=== PATIENT | male | born 1950 | race African-American/Black ===

== ENCOUNTER 2019-02-08 15:03 | Inpatient (IN) | payer MEDICARE, OTHER ==
[~2019-02-08] VITALS: Ht 180.3 cm; Wt 89.2 kg
[2019-02-08] VITALS (10 sets, daily range): BP systolic 122–152; BP diastolic 79–98; Ht 180.3 cm; Wt 89.2 kg
--- NOTE | ~2019-02-08 | HP ---
PATIENT: KATE ARROYO MEDICAL RECORD: [id number] ACCOUNT: [id number] LOCATION:[facility] D.CV02 : 48 ADMISSION DATE: 02/08/19 PCP: SABI CURRY MD HISTORY AND PHYSICAL EXAMINATION DATE OF ADMISSION: 02/08/2019 REASON FOR ADMISSION: Symptomatic bradycardia. HISTORY: This is a 69-year-old male who presented to my office for followup. He saw Dr. Samano about a month ago with shortness of breath and congestion, put him on some antibiotics, and he is feeling a little better but still has dyspnea on exertion and overall fatigue. In my office, his heart rate was down in low 40s. He had a little chest pain, but nothing huge. EKG showed frequent PVCs and heart rate of 45. He is assigned to observation at [facility] for symptomatic bradycardia and hypertension. PAST MEDICAL AND SURGICAL HISTORY: Hypertension and arthritis. He has had history of prostate cancer, history of iron-deficient anemia, and has peripheral artery disease. PAST SURGICAL HISTORY: He has had stents and peripheral arteries in his legs. He has had appendectomy, lumbar surgery in [place] in 1999, and prostatectomy by Dr. Olivo on 11/27/2015. ALLERGIES: None. HOME MEDICATIONS: He takes hydrocodone 10/325 five times a day, amlodipine 10 mg once a day, losartan 100 mg once a day, hydrochlorothiazide 25 mg once a day, and clonidine 0.2 mg twice a day. He also takes metoprolol succinate 100 once a day and has for years. He is also taking pravastatin 40 mg once a day. HABITS: He is a former smoker. Denies alcohol or drugs. SOCIAL HISTORY: He is retired. He is . FAMILY HISTORY: Both parents are . REVIEW OF SYSTEMS: GENERAL: No major weight changes. HEENT: No particular sinus or allergy problems. RESPIRATORY: No known diagnosis of emphysema or asthma. CARDIAC: He has no history of coronary artery disease. He has peripheral artery disease and has had stents placed. GASTROINTESTINAL: He has occasional heartburn. GENITOURINARY: History of prostate cancer. He has been treated with surgery and has done well. MUSCULOSKELETAL: He has arthritis and chronic lower back pain, on hydrocodone. NEUROLOGIC: No migraines. No seizure activity. PSYCHIATRIC: Denies depression or melancholia. PHYSICAL EXAMINATION: VITAL SIGNS: Temperature 97.9, heart rate 48, respirations 16, blood pressure 138/81, and O2 sat is 97%. GENERAL: He appears tired. He walks slowly down the naranjo due to fatigue. HISTORY AND PHYSICAL [id number] KATE ARROYO: Grossly within normal limits. NECK: Supple. No JVD or bruit. HEART: Bradycardic without murmur. LUNGS: Few rales bilaterally. No wheezes. ABDOMEN: Soft. EXTREMITIES: No edema. LABORATORIES: CBC with white count of 4000, hemoglobin 15.2, hematocrit 42.8, and platelets 146,000. Basic metabolic panel is all normal. Liver functions are normal. Troponin less than 0.017. ProBNP 2012. TSH 0.9 and free T4 of 1.32. ASSESSMENT: 1. Symptomatic bradycardia. 2. Hypertension. PLAN: He is on multiple drugs just to try to get his blood pressure under decent control including beta-ino. We will admit to observation on telemetry and hold the beta-ino. We will consult cardiology. Other tests or procedures as warranted. TRANSINT:[id number] Voice Confirmation ID: [id number] DOCUMENT ID: [id number] SABI CURRY MD CC: [id number] DICTATION DATE: 02/09/19 1356 GEODESY TEACHER: 02/09/19 1533 DIS IN 02/09/19 [facility] [address] [id number]
--- NOTE | ~2019-02-08 | CN ---
PATIENT NAME:KATE ARROYO MEDICAL RECORD: [id number] : 46 LOCATION:[facility].CV02 ADMIT DATE: 02/08/19 ACCOUNT: [id number] CONSULTING PHYSICIAN: CRISTY DUNN MD REFERRING PHYSICIAN: SABI CURRY MD DATE OF CONSULTATION: 02/09/2019 DIAGNOSES: 1. Symptomatic bradycardia. 2. Shortness of breath, dyspnea on exertion. 3. Hypertension. 4. Abnormal ECG, bradycardia with PVCs. HISTORY OF PRESENT ILLNESS: This is a gentleman with no previous cardiac history, quite extensive history of hypertension, on multiple agents, who for the past 2 weeks has had shortness of breath, dyspnea on exertion and overall fatigue, found to have symptomatic bradycardia. He is on metoprolol 100 mg b.i.d. This metoprolol has been on hold overnight. His heart rate is better within the 60s. He is having frequent PVCs on telemetry at this time. PHYSICAL EXAMINATION: GENERAL APPEARANCE: Well-nourished, well-developed, appears stated age. Level of distress, comfortable. PSYCHIATRIC: Mental status, alert, normal affect. Orientation, oriented to time, place and person. EYES: Lids and conjunctiva, noninjected. No discharge, no pallor. ENT: Lips, teeth, gums, normal dentition. Oropharynx, no cyanosis, no pallor. NECK: Carotid arteries, bilateral normal upstroke, no bruits, no thrills. JUGULAR VEINS: No jugular venous pressure or distention. CERVICAL LYMPH NODES: Nontender, nonenlarged. THYROID: Not enlarged. Nontender. No nodules. LUNGS: Respiratory effort, unlabored. CHEST: Normal curvature. No thoracic deformity. No chest wall tenderness. Percussion, resonant. Auscultation, clear. No wheezes, no rales, no rhonchi. CARDIOVASCULAR: Precordial exam, nondisplaced. No heaves or pericardial thrills. Rate and rhythm, regular. Heart sounds, normal S1, normal S2. No S3, no gallop, no rub. Systolic murmur, not heard. Diastolic murmur, not heard. EXTREMITIES: No cyanosis, no edema. Peripheral pulses, full and equal in all extremities, except as noted. No bruits appreciated. ABDOMEN: Soft, nondistended. Normal aorta. No bruit. Nontender. No masses. Liver, nontender, no hepatomegaly. Spleen, nontender, no splenomegaly. MUSCULOSKELETAL: No joint tenderness. No joint swelling. No erythema. NEUROLOGICAL: Normal gait, normal strength, normal tone. SKIN: Warm and dry. OVERALL IMPRESSION: Symptomatic bradycardia, most likely secondary to the metoprolol; however, he is having frequent PVCs. We will get an echocardiogram to rule out structural cardiac abnormalities and cardiomyopathy as well get stress testing with Cardiolite imaging to rule out ischemic base for the PVCs. If his cardiac tests are normal and the bradycardia resolves without the metoprolol, would choose another agent such as an alpha ino in addition to his Norvasc and ARB for blood pressure control. TRANSINT:[id number] Voice Confirmation ID: [id number] DOCUMENT ID: [id number] CONSULT REPORT [id number] KATE ARROYO JEFFREY MD CC: [id number] DICTATION DATE: 02/09/19 08 MANAGER CARDIAC: 02/09/19 0842 ADM IN [facility] [address] [id number]
--- NOTE | ~2019-02-08 | ST ---
PATIENT:KATE ARROYO MEDICAL RECORD: [id number] SEX: M LOCATION:[facility] D.CV0 ORDER #: ADMISSION DATE: 02/08/19 AGE OF PATIENT: 69 REFERRING PHYSICIAN: INTERPRETING PHYSICIAN: CRISTY DUNN MD DATE OF SERVICE: 02/09/2019 PROCEDURE: Nuclear stress test. PROCEDURE: The patient was exercised on standard Frederick protocol with 33 mCi of sestamibi injected at peak stress, 11 mCi used previously for rest images. FINDINGS: Gated SPECT reveals a preserved ejection fraction of 50% with good wall motioning and thickening and brightening throughout all segments. SPECT imaging Cardiolite was used as myocardial perfusion agent. There is homogeneous uptake throughout all segments at rest and stress with no evidence of inducible ischemia or previous infarction. OVERALL IMPRESSION: 1. This is a normal nuclear stress test with no evidence of inducible ischemia or previous infarction. 2. Gated SPECT reveals preserved ejection fraction at 50% in this patient with ongoing symptomatology, the current scan does not suggest the presence of hemodynamically significant coronary artery disease. TRANSINT:[id number] Voice Confirmation ID: [id number] DOCUMENT ID: [id number] CRISTY DUNN MD CC: [id number] DICTATION DATE: 02/09/19 1346 BRAND AMBASSADOR PROMOTIONAL MODEL: 02/09/19 2332 DIS IN 02/09/19 [id number] [place] [address]
--- NOTE | ~2019-02-08 | EC ---
PATIENT:KATE ARROYO DATE OF SERVICE: 02/08/19 SEX: M MEDICAL RECORD: [id number] DATE OF : 46 LOCATION:[address] [address] AGE OF PATIENT: 69 ADMISSION DATE: 02/08/19 REFERRING PHYSICIAN: INTERPRETING PHYSICIAN: CRISTY BRAN MD ECHOCARDIOGRAM REPORT ECHO CHARGES 4 ECHO COMPLETE Date: 02/09/19 CLINICAL DIAGNOSIS: BRADYCARDIA ECHOCARDIOGRAPHIC MEASUREMENTS (adult normal given) AC root (d.<3.7cm) 3.1 cm LV Septum d (<1.2 cm> 1.3 cm Valve Excursion 2.0 cm LV Septum (systole) 2.1 cm Left Atria (s.<4.0cm> 3.6 cm LVPW d(<1.2cm) 1.3 cm RV (d.<2.3cm) 4.0 cm LVPW (sytole) 1.4 cm LV diastole(<5.6CM) 5.7 cm MV E-F(>70mm/sec) cm LV systole 3.2 cm LVOT Diameter 2.1 cm MV exc.(>10mm) cm Est.ejection fraction (50-75%) % DOPPLER: LVIT cm/sec A 75 cm/sec E 34 cm/sec LA cm/sec RVSP 22.9 mmHg LVOT 103 cm/sec AOP1/2T m/s Asc. Ao 109 cm/sec RVOT 57 cm/sec RA cm/sec PA 85 cm/sec AV Gradient Peak 4.7 mmHg AV Mean 2.6 mmHg AV Area 3.3 cm MV Gradient Peak 2.9 mmHg MV Mean 1.0 mmHg MV Area cm COMMENTS: Hearing Impaired Teacher: Yovani SUAREZGOLDY LORIN Filler Machine Operator: 1 Dr. Bran TAPE# PACS Pericardial Effusion N DATE OF SERVICE: 02/09/2019 FINDINGS: 1. Left ventricular chamber size is within normal limits. Left ventricular systolic function is normal. Overall ejection fraction is estimated at 60%. 2. Left atrium, right atrium, and right ventricular chamber sizes are within normal limit. 3. Valvular structures have normal structure and motion. 4. Doppler interrogation reveals mild mitral regurgitation and mild tricuspid regurgitation. No other valvular insufficiency or stenosis. Pulmonary systolic ECHOCARDIOGRAM REPORT [id number] KATE ARROYO pressure is estimated at 23 mmHg. 5. No evidence of pericardial effusion or left ventricular thrombus. TRANSINT:[id number] Voice Confirmation ID: [id number] DOCUMENT ID: [id number] CRISTY BRAN MD CC: [id number] DICTATION DATE: 02/09/19 1313 FOIL SPINNER: 02/09/19 1401 ADM IN [address] [place] [address]
[~2019-02-08 15:03] MED LIST: CALAN SR240 MG PO; CATAPRES0.2 MG PO; DIOVAN HCT 320/1 TA2 PO; HYDROCODONE-APA1 TAB PO; TOPROL XL50 MG PO
--- NOTE | 2019-02-08 15:33 | NUR ---
CALLED AND SPOKE WITH DR CURRY TO VERIFY RESTARTING HOME MEDS EXCEPT HOLD METOPROLOL, NOTIFIED TAUNOE OF CONSULT WITH ORDERS FOR ECHO AND NS
[2019-02-08] MEDS ORDERED: COZAAR100 MG PO (15:44)
[2019-02-08] MEDS ORDERED: HYDROCHLOROTHIA25 MG PO (15:44)
[2019-02-08] MEDS ORDERED: NORVASC10 MG PO (15:44)
[2019-02-08] MEDS ORDERED: PRAVACHOL40 MG PO (15:45)
--- NOTE | 2019-02-08 16:00 | NUR ---
PT ARRIVED IN THE UNIT. PT A&O X4. PT HOOKED TO ICU MONITORS. SINUS BRADYCARDIA NOTED WITH A FIRST DEGREE BLOCK WITH OCCASIONAL PVC'S NOTED. PT ON RA. DENIES SOB. CRACKLES NOTED TO ALL LUNG LOBES. PT AMBULATED TO THE BATHROOM WITH A NORMAL STEADY GAIT AND VOIDED. IV STARTED IN THE PTS RIGHT WRIST PER SUNNI ARCEO. VSS AT THIS TIME. WILL CONT POC.
[2019-02-08 16:13] LABS: BASOPHILS 0.3 % (0-2); EOSINOPHILS 1.8 % (0-7); HEMATOCRIT 42.8 % (42.0-54.0); HEMOGLOBIN 15.2 g/dL (13.5-17.5); IMMATURE GRANULOCYTES 0.3 % (0-5); LYMPHOCYTES 25.3 % (15-50); MCHC 35.5 g/dL (31.0-37.0); MCV 81.5 fL (80.0-100.0); MEAN PLATELET VOLUME 10.3 fL (7.4-10.4); MONOCYTES 7.8 % (2-11); NEUTROPHILS 64.5 % (40-80); RBC 5.25 10x6/uL (4.20-6.10); RDW 13.2 % (11.5-14.5)
[2019-02-08 16:15] LABS: PLATELET COUNT 146 10x3/uL (130-400)
[2019-02-08 16:39] LABS: ALBUMIN 3.7 g/dL (3.4-5.0); ALKALINE PHOSPHATASE 74 U/L (46-116); ALT (SGPT) 10 U/L (10-68); BILIRUBIN - TOTAL 1.05 mg/dL (0.2-1.3); CALC OSMOLALITY 271 mosm/kg (275-300); CALCIUM 8.9 mg/dL (8.5-10.1); CARBON DIOXIDE 28.6 mmol/L (21.0-32.0); CHLORIDE - SERUM 102 mmol/L (98-107); CREATININE - SERUM 1.1 mg/dL (0.6-1.3); GLUCOSE 99 mg/dL (74-106); POTASSIUM - SERUM 3.5 mmol/L (3.5-5.1); PRO BNP 212 pg/mL (0-125); PROTEIN - SERUM 6.9 g/dL (6.4-8.2); SODIUM 136 mmol/L (136-145); T4 THYROXIN - FREE 1.32 ng/dL (0.76-1.46); UREA NITROGEN 12 mg/dL (7-18); eGFR NON AFRICAN AMERICAN 70 mL/min (90-120)
[2019-02-08 16:40] LABS: TROPONIN-I < 0.017 ng/mL (0.000-0.060)
--- NOTE | 2019-02-08 18:00 | NUR ---
PT SITTING OOB IN CHAIR EAT HIS DINNER. VSS. DENIES NEEDS AT THIS TIME WILL CONT POC.
--- NOTE | 2019-02-08 19:30 | NUR ---
PT UP IN CHAIR, AOX4. UNLABORED RESPIRATIONS, SPO2 97 ON ROOM AIR. DENIES PAIN AT THIS TIME. BRADYCARDIC ON MONITOR, BP 132/81. PERIPHERAL PULSES PRESENT. BOWEL SOUNDS ACTIVE IN ALL QUADRANTS. UP TO BATHROOM, STEADY GAIT. DENIES FURTHER NEEDS AT THIS TIME. CALL LIGHT WITHIN PT REACH. CPOC.
--- NOTE | 2019-02-08 20:43 | NUR ---
FRESH WATER PROVIDED. HS MED GIVEN, TOLERATED WELL. VSS, HR 55-60. DENIES ANY PAIN AT THIS TIME. PARTIAL LINEN CHANGE. REQUESTS TO LAY IN BED AT THIS TIME, STEADY GAIT. RESTING COMFORTABLY. DENIES FURTHER NEEDS. CALL LIGHT WITHIN PT REACH. CPOC.
--- NOTE | 2019-02-08 23:30 | NUR ---
REASSESSMENT COMPLETE, NO NEW CHANGES AT THIS TIME. PT REPOSITIONS SELF INDEPENDENTLY. DENIES PAIN AT THIS TIME. DENIES NEEDS. CALL LIGHT AND BEDSIDE TABLE WITHIN PT REACH. CPOC.
[2019-02-09] VITALS (14 sets, daily range): BP systolic 122–167; BP diastolic 63–103
--- NOTE | 2019-02-09 01:30 | NUR ---
PT RESTING QUIETLY WITH UNLABORED RESPIRATIONS, VSS. REPOSITIONED SELF INDEPENDENTLY. CALL LIGHT WITHIN PT REACH. CPOC.
--- NOTE | 2019-02-09 03:30 | NUR ---
REASSESSMENT COMPLETE, SEE FLOWSHEET. PT UP TO BATHROOM, STEADY GAIT. PARTIAL LINEN CHANGE COMPLETE. DENIES PAIN. DENIES FURTHER NEEDS. CALL LIGHT WITHIN PT REACH. CPOC.
--- NOTE | 2019-02-09 07:15 | NUR ---
SHIFT REPORT RECEIVED. AA&OX4. DENIES CHEST PAIN. ON ROOM AIR. 20G PIV NOTED ON R-WRIST WITH NS AT 150ML/HR. LOW HR NOTED. SHIFT ASSESSMENT COMPLETED AND CHARTED IN FLOWSHEET. NO FURTHER NEEDS AT THIS TIME. WILL CONTINUE TO MONITOR.
--- NOTE | 2019-02-09 07:59 | NUR ---
DR. DUNN AT BEDSIDE. PT CAN GO TO PCU PER DR. DUNN.
--- NOTE | 2019-02-09 08:39 | NUR ---
AM MEDS GIVEN. DEATH CLAIM CLERK IN ROOM AT THIS TIME.
--- NOTE | 2019-02-09 10:58 | NUR ---
PT NOT IN ROOM AT THIS TIME. WENT DOWN FOR STRESS TEST.
--- NOTE | 2019-02-09 11:58 | NUR ---
PT BACK IN ROOM. CONNECTED TO INCOME TAX EXPERT. SITTING UP IN CHAIR. WILL CONTINUE TO MONITOR.
--- NOTE | 2019-02-09 13:02 | NUR ---
PT NOT IN ROOM. TAKEN BACK DOWN TO IMAGAGING.
--- NOTE | 2019-02-09 13:30 | NUR ---
PT BACK IN ROOM. CONNECTED TO TRIAGE ASSISTANT. SITTING IN CHAIR. SON AT BEDSIDE.
[2019-02-09] MEDS ORDERED: CARDURA4 MG PO (14:01)
--- NOTE | 2019-02-09 15:12 | NUR ---
R WRIST PIV DC'D WITH CATHETER TIP INTACT. DISCHARGE INSTRUCTIONS REVIEWED WITH PATIENT. FOLLOW UP WITH DR. CURYR ON FEBRUARY 17, 2019 AT 1140. NO FOLLOW UP REQUIRED WITH DR. DUNN. WHEELED PT OUT TO PERSONAL VEHICLE. PERSONAL BELONGINGS SENT HOME WITH PATIENT INCLUDING CELL PHONE AND ORE DIGGER.
--- NOTE | 2019-02-11 20:23 | MORECARE ---
CASE MANAGEMENT DISCHARGE SUMMARY PATIENT: KATE ARROYO UNIT: [id number] ADM DATE: 02/08/19 AGE: 69 : 48 SEX: M [facility] AUTHOR: TISH LEWIS PHYSICIAN: REFERRING PHYSICIAN: SABI CURRY MD DATE OF SERVICE: 02/11/19 Discharge Plan Patient Name: KTAE ARROYO Facility: [facility]:[place] : 1950 Planned Disposition: Home Anticipated Discharge Date: Discharge Date: 02/09/2019 Expected LOS: Initial Reviewer: [id number] Initial Review Date: 02/09/2019 Generated: 02/11/19 9:23 pm Patient Name: KATE ARROYO Page 19204 at 2022 All edits/amendments must be made on the electronic document DICTATION DATE: 02/11/192022 NEON GLASS BENDER: RY 02/11/192022 RPT#: [id number] DC DATE:02/09/19 STATUS: DIS IN [facility] [address] [place] [address] END OF REPORT
--- NOTE | 2019-02-11 20:31 | MORECARE ---
CASE MANAGEMENT DISCHARGE SUMMARY PATIENT: KATE ARROYO UNIT: [id number] ADM DATE: 02/08/19 AGE: 69 : 48 SEX: M ROOM/BED: D.CV02 AUTHOR: TISH LEWIS PHYSICIAN: REFERRING PHYSICIAN: SABI CURRY MD DATE OF SERVICE: 02/11/19 Discharge Plan Patient Name: KATE ARROYO Facility: [facility]:[place] : 1950 Planned Disposition: Home Anticipated Discharge Date: Discharge Date: 02/09/2019 Expected LOS: Initial Reviewer: [email or web address] Initial Review Date: 02/09/2019 Generated: 02/11/19 9:31 pm Comments DCP- Discharge Planning Updated by [email or web address]: Geovanna Gilliam on 02/11/19 7:[address] LATE ENTRY 02/09/19 @ 1430 Patient Name: KATE ARROYO Admission Status: Elective Accout number: [id number] Admission Date: 02-08-2019 : 1950 Admission Diagnosis:BRADYCARDIA, UNSPECIFIED Attending: SABI CURRY Current LOS: 1 Anticipated DC Date: Planned Disposition: Home Primary Insurance: MEDICARE A & B Discharge Planning Comments: CM met with patient at bedside after explaining CM role and obtaining verbal consent. Patient lives at home alone and plans to return there upon discharge. Patient feels this would be a safe discharge. CM discussed availability / needs of home health and medical equipment. Patient denies any discharge needs at this time. Patient states he will have his son drive him home upon discharge. CM will continue to follow and assist as needed with discharge planning / needs. Repairer Resistance Welding Machines: Geovanna Gilliam DCPIA - Discharge Planning Initial Assessment Updated by [email or web address]: Geovnana Gilliam on 02/11/19 8:23 pm * Is the patient Alert and Oriented? Yes * How many steps to enter\exit or inside your home? * PCP yassine * Pharmacy [facility] * Preadmission Environment Home Alone * ADLs Independent * Equipment None * List name and contact numbers for known caregivers / representatives who currently or will assist patient after discharge: best Pimentel - [facility]- [phone] * Verbal permission to speak to the caregivers and representatives has been obtained from the patient. Yes * Community resources currently utilized None * Additional services required to return to the preadmission environment? No * Can the patient safely return to the preadmission environment? Yes * Has this patient been hospitalized within the prior 30 days at any hospital? No Last DP export: 02/11/19 7:23 pm Patient Name: KATE ARROYO Page [id number] at 2030 All edits/amendments must be made on the electronic document DICTATION DATE: 02/11/192030 ACTIVITY AID: RY 02/11/192030 RPT#: [id number] DC DATE:02/09/19 STATUS: DIS IN [id number] [place] [address] END OF REPORT
== END 2019-02-09 15:17 | disposition home or self-care (01) | DRG 310 ==
LOC: D.CVICU 15:03
PROVIDERS: ADMIT Family Medicine; ATTEND Family Medicine
DX: R00.1 Bradycardia, unspecified (principal); I10 Essential (primary) hypertension; R06.02 Shortness of breath; R94.31 Abnormal electrocardiogram [ECG] [EKG]

== ENCOUNTER → 2020-11-04 | Emergency (ER) | payer MEDICARE, OTHER ==
[~2020-11-04] VITALS: Ht 180.3 cm; Wt 98.6 kg
[~2020-11-04] MED LIST changes: +BAYER CHEWABLE81 MG PO; +CARDURA4 MG PO; +COZAAR100 MG PO; +FERROUS SULFAT325 MG PO; +HYDROCHLOROTHIA25 MG PO; +MUCINEX DM ER1 EAC1 PO; +NORVASC10 MG PO; +PRAVACHOL40 MG PO; +PROMETHAZINE W473 ML PO; +VIBRAMYCIN 100100 MG PO; +ZPAK PO
[2020-11-04 11:14] VITALS: Ht 180.3 cm; Wt 98.6 kg
[2020-11-04 11:42] LABS: NITRITE NEGATIVE (NEGATIVE)
[2020-11-04 11:43] LABS: BILIRUBIN NEGATIVE (NEGATIVE); KETONE NEGATIVE (NEGATIVE); UROBILINOGEN NORMAL mg/dL (< 2)
[2020-11-04 11:53] LABS: BASOPHILS 0 % (0-2); HEMATOCRIT 36.8 % (42.0-54.0); HEMOGLOBIN 12.3 g/dL (13.5-17.5); IMMATURE GRANULOCYTES 0.2 % (0-5); LYMPHOCYTE ABS# 0.55 10x3/uL (1.32-3.57); LYMPHOCYTES 10.9 % (15-50); MCH 27.3 pg (26.0-34.0); MCHC 33.4 g/dL (31.0-37.0); MCV 81.8 fL (80.0-100.0); MEAN PLATELET VOLUME 10.1 fL (7.4-10.4); MONOCYTES 9.5 % (2-11); NEUTROPHILS 75.4 % (40-80); PLATELET COUNT 234 10x3/uL (130-400); RDW 12.8 % (11.5-14.5)
[2020-11-04 12:00] VITALS: BP 122/75
[2020-11-04 12:04] LABS: CALC OSMOLALITY 276 mosm/kg (275-300); CALCIUM 10.1 mg/dL (8.5-10.1); CARBON DIOXIDE 26.5 mmol/L (21.0-32.0); CHLORIDE - SERUM 103 mmol/L (98-107); CREATININE - SERUM 1.3 mg/dL (0.6-1.3); GLUCOSE 116 mg/dL (74-106); POTASSIUM - SERUM 3.8 mmol/L (3.5-5.1); SODIUM 138 mmol/L (136-145); UREA NITROGEN 12 mg/dL (7-18); eGFR NON AFRICAN AMERICAN 58 mL/min (90-120)
[2020-11-04 12:09] LABS: APTT 30.7 SECONDS (22.8-39.4); INR 1.17 (0.85-1.17); PROTIME 13.8 SECONDS (11.6-15.0)
[2020-11-04 12:30] LABS: ALBUMIN 3.4 g/dL (3.4-5.0); ALKALINE PHOSPHATASE 84 U/L (30-120); ALT (SGPT) 18 U/L (10-68); BILIRUBIN - TOTAL 0.46 mg/dL (0.2-1.3); CKMB 0.5 U/L (0.0-3.6); CREATINE KINASE 76 UL (21-232); PRO BNP 166 pg/mL (0-125); PROTEIN - SERUM 7.8 g/dL (6.4-8.2); TROPONIN-I < 0.017 ng/mL (0.000-0.060)
== END ==
LOC: D.ER 11:07
PROVIDERS: Family Medicine
DX: J18.9 Pneumonia, unspecified organism (principal); R06.02 Shortness of breath; I10 Essential (primary) hypertension; G62.9 Polyneuropathy, unspecified